=== PATIENT | female | born 1940 | race Caucasian/White ===

== ENCOUNTER → 2018-05-11 | Outpatient (CLI) | payer MEDICARE, OTHER ==
[~2018-05-11] MED LIST: BIOT10004; CALC500T6 PO; CHOL100058 PO; GLUC100026 PO; LEVO100T95 PO; LOSA25TA46 PO; LUTE20CA11 PO; MAGN100T PO; POTA99TA10; RED600CA15 PO; SYNTHROID; VALA100062 PO; [UNRECOGNIZED DRUG - OTHER]
--- NOTE | 2018-05-11 16:07 | RADIOLOGY IMAGING REPORT ---
[place]AC[place] [facility] [place] NAME: JOHN VAZQUEZ : [id number] MR: [id number] V: [id number] EXAM DATE: [id number] ORDERING PHYSICIAN: NATALIA SÁNCHEZ TECHNOLOGIST: Heidy Su PROCEDURE:BILATERAL DIGITAL SCREENING MAMMOGRAM WITH CAD ASSISTED INTERPRETATION & 3D TOMOSYNTHESIS COMPARISON:Prior mammograms. INDICATIONS:SCREENING FINDINGS: Scattered fibroglandular densities are present in both breasts. Benign appearing calcifications are scattered bilaterally. DIAGNOSTIC CATEGORY 1--NEGATIVE. RECOMMENDATIONS: ROUTINE MAMMOGRAM AND CLINICAL EVALUATION IN 1 YR. IMPRESSION: BIRADS 1: Negative. Dictated by: Alexi Glover M.D. on 05/11/2018 at 13:48 Transcribed by: [email or web address] on 05/11/2018 at 13:54 Approved by: Alexi Glover M.D. on 05/11/2018 at 16:06 [facility]
== END ==
LOC: MAMO 01:51
PROVIDERS: ATTEND Student in an Organized Health Care Education/Training Program
DX: Z12.31 Encounter for screening mammogram for malignant neoplasm of breast (principal); Z80.3 Family history of malignant neoplasm of breast
CPT/HCPCS: 77063; 77067